=== PATIENT | male | born 1980 | race Caucasian/White ===

== ENCOUNTER 2021-09-09 08:31 | Emergency (ER) | payer OTHER, SELFPAY ==
[2021-09-09 08:42] VITALS: BP 119/85; PULSE 58; RESP 16; TEMP 36.6; O2SAT 97
--- NOTE | 2021-09-09 08:56 | ED.SKABFB ---
HPI - Skin/Abscess/Foreign Bdy General Chief complaint: Skin/Abscess/Foreign Body Stated complaint: spider bite? Time Seen by Provider: 09/09/21 08:44 History of Present Illness HPI narrative: 41-year-old male presents to the emergency room for evaluation of suspected insect bite to his right fourth digit. Patient states he noticed a small pustule on his finger 3 days ago, and is since opened up and drained it. Patient noticed some redness, swelling and increased pain around the site. This morning patient noticed redness extending the length of his finger and into the backside of his hand. Denies any fever. Related Data Allergies Allergy/AdvReac Type Severity Reaction Status Date / Time No Known Allergies Allergy Verified 09/09/21 08:32 Review of Systems Review of Systems: CONSTITUTIONAL: Denies fever, chills, or sweats. EYES: Denies visual changes, redness, or discharge. ENT: Denies rhinorrhea, congestion, sore throat, or otalgia. CARDIOVASCULAR: Denies chest pain, palpitations, or edema. RESPIRATORY: Denies cough or dyspnea. GASTROINTESTINAL: Denies abdominal pain, nausea, vomiting, or diarrhea. GENITOURINARY: Denies dysuria or hematuria. SKIN: Suspected bite to the right fourth digit MUSCULOSKELETAL: Denies back pain, joint pain, or myalgia. NEUROLOGIC: Denies headache, numbness, dizziness, or weakness. PSYCHIATRIC: Denies anxiety or depression. Exam Narrative: GENERAL: Well-appearing, well-nourished, no physical limitations, and in no acute distress. HEAD: Normocephalic, atraumatic. EYES: Conjunctivae normal, PERRLA and EOMI. CHEST: Clear to auscultation. No respiratory distress. No wheezes rales or rhonchi. No tenderness. HEART: Regular rate and rhythm. No murmur heard. Normal peripheral pulses. EXTREMITIES: Normal range of motion. No edema. No clubbing or cyanosis SKIN: Right fourth digit: Pea-sized ulceration to the dorsal aspect of the proximal phalanx with noted purulent drainage, surrounding erythema and soft tissue swelling extending the length of the digit and crossing the MCP joint into the dorsum of the hand NEURO: No focal deficits. Alert and oriented x3. MAEW. CN's II-XI intact bilaterally, normal gait PSYCH: Cooperative. Normal mood and affect. Course Vital Signs Vital signs: Vital Signs Temperature 36.6 C 09/09/21 08:42 Pulse Rate 58 L 09/09/21 08:42 Respiratory Rate 16 09/09/21 08:42 Blood Pressure 119/85 09/09/21 08:42 Pulse Oximetry 97 09/09/21 08:42 Oxygen Delivery Room Air 09/09/21 08:42 Temperature 36.6 C 09/09/21 08:42 Pulse Rate 58 L 09/09/21 08:42 Respiratory Rate 16 09/09/21 08:42 Blood Pressure 119/85 09/09/21 08:42 Pulse Oximetry 97 09/09/21 08:42 Oxygen Delivery Room Air 09/09/21 08:42 Discharge Plan Discharge Clinical Impression: Cellulitis, Abscess of skin or subcutaneous tissue Patient Disposition: Home, Self-Care Condition: Stable Instructions: Antibiotic Form, Cellulitis (ED), Abscess (ED) Prescriptions: New cephalexin 500 mg capsule 500 mg PO Q12H 7 Days Qty: 14 0RF Follow-up/Referrals: PHYSICIAN NOT ON STAFF,NONSTAFF [Non-Staff] - Time of Disposition: 09:
[2021-09-09] MEDS: cefTRIAXone 1 GM VIAL IM (09:17)
[2021-09-09] MEDS: TETANUS,DIPHTHERIA,AC PERTUSSIS ADULT (0.5 ML) BOOSTRIX IM (09:18)
[2021-09-09] MEDS: LIDOCAINE HCL 1% LOCAL INJ 20 ML VIAL (09:18)
[2021-09-09 09:44] VITALS: BP 125/80; PULSE 93; RESP 18; TEMP 36.6; O2SAT 96
== END 2021-09-09 09:44 | disposition home or self-care (01) ==
PROVIDERS: Emergency Provider Nurse Practitioner Family; PCP Family Medicine
DX: L03.011 Cellulitis of right finger (principal); L02.511 Cutaneous abscess of right hand; Z23 Encounter for immunization
CPT/HCPCS: 90471; 90715; 96372; 99283; J0696